=== PATIENT | female | born 1970 | race Caucasian/White ===

== ENCOUNTER 2016-09-06 12:59 | Emergency (ER) | payer OTHER ==
[2016-09-06 13:22] VITALS: BP 107/74
--- NOTE | 2016-09-06 13:34 | UC ---
Back Pain HPI - HPI Summary HPI Summary: severe low back pain since 09/04/16. No known injury. Pt states she did a yoga class, but not extreme poses and no different than usual. States she walked around [place] and then later that day could barely move due to pain. States the pain radiates down both of her legs. No incontinence. No numbness or tingling. - History of Current Complaint Chief Complaint: UCBackPain Stated Complaint: BACK PAIN Time Seen by Provider: 09/06/16 13:27 Hx Obtained From: Patient, Family/[employer] - male partner Hx Last Menstrual Period: 09/05/16 Onset/Duration: Sudden Onset, Lasting Days, Still Present Timing: Constant Severity Initially: Moderate Severity Currently: Moderate Pain Intensity: 10 Pain Scale Used: 0-10 Numeric Back Pain: Is Discrete @ - lower back Character: Sharp, Aching Aggravating: Movement Alleviating: Nothing Associated Signs And Symptoms: Negative: Abdominal Pain, Bladder Incontinence, Bowel Incontinence - Risk Factors AAA Risk Factors: Negative TAD Risk Factors: Negative Cauda Equina Risk Factors: Negative Epidural Abscess Risk Factors: Negative - Allergies/Home Medications Allergies/Adverse Reactions: Allergies Allergy/AdvReac Type Severity Reaction Status Date / Time Chocolate Allergy Hives Verified 09/06/16 13:23 Procaine [From Novocain] Allergy Difficulty Verified 09/06/16 13:23 Breathing PMH/Surg Hx/FS Hx/Imm Hx Endocrine History Of: Denies: Diabetes, Thyroid Disease, Hyperthyroidism, Hypothyroidism, Dyslipidemia Cardiovascular History Of: Denies: Cardiac Disorders, Hypertension, Pacemaker/ICD, Myocardial Infarction , Congestive Heart Failure, Atrial Fibrillation, Deep Vein Thrombosis, Bleeding Disorders Respiratory History Of: Denies: COPD, Asthma, Bronchitis, Pneumonia, Pulmonary Embolism GI/ History Of: Reports: Gall Bladder Disease, Kidney Stones Denies: Gastroesophageal Reflux, Ulcer, Gastrointestinal Bleed, Diverticulitis, Renal Disease, Urosepsis Neurological History Of: Denies: TIA, CVA, Dementia, Seizures, Migraine Psychological History Of: Denies: Anxiety, Depression, Bipolar Disorder, Schizophrenia, Post Traumatic Stress Disorder Cancer History Of: Denies: Lung Cancer, Colorectal Cancer, Breast Cancer, Prostate Cancer, Cervical Cancer Other History Of: Hepatitis B - She states that she has antibodies to hepatitis B, Negative For: HIV, Hepatitis C - Surgical History Surgical History: Yes Surgery Procedure, Year, and Place: CHOLECYSTECTOMY - [facility] - Family History Known Family History: Positive: Cardiac Disease - Social History Lives: With Family Alcohol Use: Occasionally Substance Use Type: None Smoking Status (MU): Never Smoked Tobacco Review of Systems Constitutional: Negative Skin: Negative Eyes: Negative ENT: Negative Respiratory: Negative Cardiovascular: Negative Gastrointestinal: Negative Genitourinary: Negative Motor: Negative Neurovascular: Negative Musculoskeletal: Arthralgia, Myalgia Neurological: Negative Psychological: Negative All Other Systems Reviewed And Are Negative: Yes Physical Exam Triage Information Reviewed: Yes Appearance: Well-Nourished, Ill-Appearing, Pain Distress Vital Signs: Initial Vital Signs Temp 99.2 F 09/06/16 13:18 Pulse 90 09/06/16 13:18 Resp 16 09/06/16 13:18 BP 107/74 09/06/16 13:18 Pulse Ox 100 09/06/16 13:18 Vital Signs Reviewed: Yes Eyes: Positive: Conjunctiva Clear ENT: Positive: Normal ENT inspection, Hearing grossly normal Neck: Positive: Supple, Nontender, No Lymphadenopathy Respiratory: Positive: Chest non-tender, Lungs clear, Normal breath sounds, No respiratory distress Cardiovascular: Positive: RRR, No Murmur, Pulses Normal, Brisk Capillary Refill Abdomen Description: Positive: Nontender, No Organomegaly, Soft. Negative: CVA Tenderness (R), CVA Tenderness (L), Distended, Guarding, McBurney's Point Tenderness, Peritoneal Signs, Pulsatile Mass Bowel Sounds: Positive: Present Musculoskeletal: Positive: Strength Intact, ROM Limited @ - slow but able to bend and walk Neurological: Positive: Alert, Muscle Tone Normal, Other: - reflexes knee and ankle 2+. Neg SLR. No sciatic notch tenderness. +bilat sacroiliac tenderness Psychological Exam: Normal Skin Exam: Normal Back Pain Course/Dx - Course Course Of Treatment: flexeril and ice given. UA neg for blood and wbc's. Pt is not DM, so cannot explain glucose. Pt will follow up with her doctor. - Differential Dx/Diagnosis Differential Diagnosis/HQI/PQRI: Arthritis, Cauda Equina Syndrome, Herniated Disc, Strain, Sprain Provider Diagnoses: Acute low back pain/sacroilitis Discharge - Discharge Plan Condition: Stable Disposition: HOME Prescriptions: Cyclobenzaprine TAB* [Flexeril TAB*] 10 mg PO TID PRN #30 tab PRN Reason: Pain Meloxicam [Mobic] 15 mg PO DAILY #30 tab oxyCODONE/Acetamin 5/325 MG* [Percocet 5/325 TAB*] 1 tab PO Q6H PRN #12 tab MDD 4 PRN Reason: Pain Patient Education Materials: Acetaminophen (By mouth), Acute Low Back Pain (ED) Referrals: Stephanie Hopson MD [Primary Care Provider] - Phi Peterson MD [Medical Doctor] - 3 Days (for acute sacroilitis ) Additional Instructions: Dr. Prince has recommended that you may take up to 4 grams of acetaminophen, which is the same thing as Tylenol, daily. You make take 3 of the 325mg acetaminophen 3 times a day, and then at night you may take 2 of the 325mg acetaminophen with one narcotic pill (oxycodone/acetaminophen). The acetaminophen will not alter your thinking. You may also take the Mobic (meloxicam) once daily and you may take this with the acetaminophen. Acetaminophen and the narcotic treat pain. Meloxicam treats pain and inflammation. You should not take additional over the counter aleve, motrin, advil or ibuprofen while taking the mobic. You may take the flexeril (cyclobenzaprine) 3 times a day, but this can alter your thinking. You may want to reserve it just for night time, but it can safely be take [address] Prince gave one dose of Flexeril (cyclobenzaprine) at 2:15pm. You may try ice or heat. Continue your activities of daily living the best you can. Dr. Prince has referred you to orthopedics for further evaluation. They will determine if you need advanced imaging such as an MRI or CT scan. Based on exam today, you do not need such imaging emergently. Call the orthopedics office of Dr. Peterson, to schedule an appointment for approximately 1-2 weeks, sooner is fine if they can accommodate you. Go to the emergency room if you have new or worsening symptoms.
[2016-09-06] MEDS ORDERED: Cyclobenzaprine TAB* 10 MG PO ONE (14:02)
== END 2016-09-06 14:55 | disposition home or self-care (01) ==
LOC: UCEAST 12:59
DX: M54.5 Low back pain (principal); M46.1 Sacroiliitis, not elsewhere classified; Z88.5 Allergy status to narcotic agent
CPT/HCPCS: 81002; 99212; A9270-GY; G0463